=== PATIENT | female | born 1945 | race Caucasian/White ===

== ENCOUNTER → 2017-07-31 | Outpatient (CLI) | payer MEDICARE ==
[2015-01-20 07:55] VITALS: BP 104/74
[~2017-07-31] MED LIST: ASCO120C PO; CHOL20002 PO; CHOL5POW MC; ESCITALOPRAM OX10 MG PO; LEVO75TA5 PO; MV,M1TAB2 PO
--- NOTE | 2017-07-31 12:04 | KCIC ---
MRI Brain without contrast History: Dizziness, fall 6 months ago, feels off balance Technique: Multiplanar, multisequential noncontrast MR imaging was performed of the brain. Contrast: None Comparison: None Findings: There is no evidence of recent infarct or cytotoxic edema. The ventricles, sulci, and cisterns are within normal limits in size and configuration. There is no significant midline shift, intraaxial mass effect, or focal abnormal extra-axial fluid collection. There is overall mild T2 and FLAIR hyperintense abnormality of the supratentorial white matter concentrated in the periatrial and parietal white matter. The is no significant hemosiderin deposition of the brain parenchyma. There is preservation of the major intracranial flow-voids at the skull base. There is very minimal fluid left mastoid air cells.The cerebellar tonsils are normal in location. There is no significant abnormality of the pineal gland or pituitary gland. There is mild ethmoid air cell mucosal thickening bilaterally. There is preserved marrow signal of the clivus. There has been lens surgery bilaterally. Impression: 1. Overall mild T2 and FLAIR hyperintense signal abnormality concentrated in the periatrial parietal white matter is nonspecific, most commonly due to chronic microvascular ischemic disease in a patient this age. Electronically signed by: Bahman Hills MD (07/31/2017 12:00 PM) [id number]
== END | disposition home or self-care (01) ==
LOC: KCIC MRI 10:40
PROVIDERS: ATTEND Physician Assistant Medical
DX: I99.8 Other disorder of circulatory system (principal); R42 Dizziness and giddiness; R90.82 White matter disease, unspecified; W19.XXXD Unspecified fall, subsequent encounter
CPT/HCPCS: 70551

== ENCOUNTER 2021-10-06 16:48 | Inpatient (IN) | payer MEDICARE ==
[~2021-10-06] VITALS: Ht 177.8 cm; Wt 86.9 kg
[2021-10-06 16:45] VITALS: BP 143/71
[~2021-10-06 16:48] MED LIST changes: -CHOL20002 PO; +CHOL200059 PO
[2021-10-06] MEDS ORDERED: HEPARIN for IV BOLUS 10,000 UNIT/10 ML VIAL. IV PRN ×2 (17:45)
[2021-10-06 18:57] VITALS: BP 121/74
[2021-10-06] MEDS ORDERED: LOPE-101 PO (19:31)
[2021-10-06] MEDS: CITALOPRAM 20 MG TABLET. PO SCH (20:47)
[2021-10-06 22:55] VITALS: BP 107/62
[2021-10-07 03:04] VITALS: BP 114/69
[2021-10-07] MEDS: LEVOTHYROXINE 88 MCG TABLET PO SCH (05:52)
[2021-10-07 06:47] LABS: BASO # 0.1 x10^3/uL (0.0-0.2); BASO % 1 % (0-3); EOS # 0.1 x10^3/uL (0.0-0.7); EOS % 1 % (0-3); HEMATOCRIT 38.8 % (36.0-47.0); HEMOGLOBIN 12.7 g/dL (12.0-15.5); LYMPH # 2.7 x10^3/uL (1.0-4.8); LYMPH % 29 % (24-48); MEAN CORPUSCULAR HEMOGLOBIN 29 pg (25-35); MEAN CORPUSCULAR HGB CONC 33 g/dL (31-37); MEAN CORPUSCULAR VOLUME 87 fL (79-100); MONO # 0.9 x10^3/uL (0.0-1.1); MONO % 9 % (0-9); NEUT # 5.7 x10^3/uL (1.8-7.7); NEUT % 60 % (31-73); PLATELET COUNT 237 x10^3/uL (140-400); RED BLOOD COUNT 4.46 x10^6/uL (3.50-5.40); RED CELL DISTRIBUTION WIDTH 13.4 % (11.5-14.5); WHITE BLOOD COUNT 9.4 x10^3/uL (4.0-11.0)
[2021-10-07 07:00] VITALS: BP 132/68
[2021-10-07 07:21] LABS: ALBUMIN 2.7 g/dL (3.4-5.0); ALBUMIN/GLOBULIN RATIO 0.8 (1.0-1.7); CALCIUM 7.9 mg/dL (8.5-10.1); CREATININE 0.9 mg/dL (0.6-1.0); GFR 60.9; TOTAL BILIRUBIN 0.3 mg/dL (0.2-1.0)
[2021-10-07] MEDS ORDERED: CITALOPRAM 20 MG TABLET. PO SCH (09:00)
[2021-10-07] MEDS: HEPARIN 25,000UTS/250ML PREMIX 250 ML IV PRN (09:54)
[2021-10-07 10:33] VITALS: BP 140/63
--- NOTE | 2021-10-07 12:25 | NUR ---
SS following for discharge planning. SS reviewed pt chart and discussed with pt RN. Pt is from home and is currently requiring oxygen at three liters nasal canula. Cardiology and Pulmonology consulted. Heparin drip. ECHO ordered. SS will continue to follow for discharge planning.
--- NOTE | 2021-10-07 13:07 | PDOC ---
PULMONARY PROGRESS NOTES DATE: 10/07/21 TIME: 13:06 Vitals Vital Signs Date Time Temp Pulse Resp B/P (MAP) Pulse Ox O2 Delivery O2 Flow Rate FiO2 10/07/21 10:33 97.8 62 18 140/63 (88) 98 Nasal Cannula 3.0 97.8 Labs Laboratory Tests Test 10/06/21 18:50 10/07/21 01:00 10/07/21 06:30 Heparin Anti-Xa Act, Unfractionated 0.55 IU/mL (0.30-0.70) 0.53 IU/mL (0.30-0.70) 0.48 IU/mL (0.30-0.70) Troponin I High Sensitivity 270 ng/L (4-50) White Blood Count 9.4 x10^3/uL (4.0-11.0) Red Blood Count 4.46 x10^6/uL (3.50-5.40) Hemoglobin 12.7 g/dL (12.0-15.5) Hematocrit 38.8 % (36.0-47.0) Mean Corpuscular Volume 87 fL (79-100) Mean Corpuscular Hemoglobin 29 pg (25-35) Mean Corpuscular Hemoglobin Concent 33 g/dL (31-37) Red Cell Distribution Width 13.4 % (11.5-14.5) Platelet Count 237 x10^3/uL (140-400) Neutrophils (%) (Auto) 60 % (31-73) Lymphocytes (%) (Auto) 29 % (24-48) Monocytes (%) (Auto) 9 % (0-9) Eosinophils (%) (Auto) 1 % (0-3) Basophils (%) (Auto) 1 % (0-3) Neutrophils # (Auto) 5.7 x10^3/uL (1.8-7.7) Lymphocytes # (Auto) 2.7 x10^3/uL (1.0-4.8) Monocytes # (Auto) 0.9 x10^3/uL (0.0-1.1) Eosinophils # (Auto) 0.1 x10^3/uL (0.0-0.7) Basophils # (Auto) 0.1 x10^3/uL (0.0-0.2) Sodium Level 142 mmol/L (136-145) Potassium Level 4.0 mmol/L (3.5-5.1) Chloride Level 108 mmol/L (98-107) Carbon Dioxide Level 25 mmol/L (21-32) Anion Gap 9 (6-14) Blood Urea Nitrogen 16 mg/dL (7-20) Creatinine 0.9 mg/dL (0.6-1.0) Estimated GFR (Cockcroft-Gault) 60.9 BUN/Creatinine Ratio 18 (6-20) Glucose Level 127 mg/dL (70-99) Calcium Level 7.9 mg/dL (8.5-10.1) Total Bilirubin 0.3 mg/dL (0.2-1.0) Aspartate Amino Transf (AST/SGOT) 10 U/L (15-37) Alanine Aminotransferase (ALT/SGPT) 20 U/L (14-59) Alkaline Phosphatase 69 U/L (46-116) Total Protein 6.0 g/dL (6.4-8.2) Albumin 2.7 g/dL (3.4-5.0) Albumin/Globulin Ratio 0.8 (1.0-1.7) Thyroid Stimulating Hormone (TSH) 0.690 uIU/mL (0.358-3.74) Laboratory Tests Test 10/06/21 18:50 10/07/21 01:00 10/07/21 06:30 Heparin Anti-Xa Act, Unfractionated 0.55 IU/mL (0.30-0.70) 0.53 IU/mL (0.30-0.70) 0.48 IU/mL (0.30-0.70) Troponin I High Sensitivity 270 ng/L (4-50) White Blood Count 9.4 x10^3/uL (4.0-11.0) Red Blood Count 4.46 x10^6/uL (3.50-5.40) Hemoglobin 12.7 g/dL (12.0-15.5) Hematocrit 38.8 % (36.0-47.0) Mean Corpuscular Volume 87 fL (79-100) Mean Corpuscular Hemoglobin 29 pg (25-35) Mean Corpuscular Hemoglobin Concent 33 g/dL (31-37) Red Cell Distribution Width 13.4 % (11.5-14.5) Platelet Count 237 x10^3/uL (140-400) Neutrophils (%) (Auto) 60 % (31-73) Lymphocytes (%) (Auto) 29 % (24-48) Monocytes (%) (Auto) 9 % (0-9) Eosinophils (%) (Auto) 1 % (0-3) Basophils (%) (Auto) 1 % (0-3) Neutrophils # (Auto) 5.7 x10^3/uL (1.8-7.7) Lymphocytes # (Auto) 2.7 x10^3/uL (1.0-4.8) Monocytes # (Auto) 0.9 x10^3/uL (0.0-1.1) Eosinophils # (Auto) 0.1 x10^3/uL (0.0-0.7) Basophils # (Auto) 0.1 x10^3/uL (0.0-0.2) Sodium Level 142 mmol/L (136-145) Potassium Level 4.0 mmol/L (3.5-5.1) Chloride Level 108 mmol/L (98-107) Carbon Dioxide Level 25 mmol/L (21-32) Anion Gap 9 (6-14) Blood Urea Nitrogen 16 mg/dL (7-20) Creatinine 0.9 mg/dL (0.6-1.0) Estimated GFR (Cockcroft-Gault) 60.9 BUN/Creatinine Ratio 18 (6-20) Glucose Level 127 mg/dL (70-99) Calcium Level 7.9 mg/dL (8.5-10.1) Total Bilirubin 0.3 mg/dL (0.2-1.0) Aspartate Amino Transf (AST/SGOT) 10 U/L (15-37) Alanine Aminotransferase (ALT/SGPT) 20 U/L (14-59) Alkaline Phosphatase 69 U/L (46-116) Total Protein 6.0 g/dL (6.4-8.2) Albumin 2.7 g/dL (3.4-5.0) Albumin/Globulin Ratio 0.8 (1.0-1.7) Thyroid Stimulating Hormone (TSH) 0.690 uIU/mL (0.358-3.74) Medications Active Scripts Medications Dose Route/Sig Max Daily Dose Days Date Category Imodium A-D (Loperamide HCl) 2 Mg Capsule 2 Mg PO PRN DAILY PRN 10/06/21 Reported Vitamin D-3 (Cholecalciferol (Vitamin D3)) 2,000 Unit Tablet 2,000 Unit PO 01/20/15 Reported Porsha-C (Ascorbic Acid) 120 Gm Crystals 500 Mg PO DAILY 01/20/15 Reported Cholestyramine Resin (Cholestyramine) 5 Gm Powder 5 Gm MC 01/20/15 Reported Strovite One Caplet (Mv,Min #10/Fa/D3/Alip Acid/Lut) 1 Each Tablet 1 Each PO 01/20/15 Reported Levothyroxine Sodium 75 Mcg Tablet 75 Mcg PO DAILYAC 01/20/15 Reported Escitalopram Oxalate 10 Mg Tablet 10 Mg PO QHS 01/20/15 Reported Impression . FULL NOTE DICTATED THANKS CONTINUE THE SAME HOME ON ELIQUIS IN 24-48 HOURS FERMIN MORA MD Oct 07, 2021 13:07
--- NOTE | 2021-10-07 13:28 | HP ---
DATE OF SERVICE: 10/07/2021 ADMIT DATE: 10/06/2021 HISTORY OF PRESENT ILLNESS: The patient is a 76-year-old female patient who presented to the Emergency Room with chest pain and intermittent chest discomfort and shortness of breath for a couple of months, it started out as a cold about 3 months ago. Her nasal congestion and cough went away, but the patient still had fatigue and decreased exercise tolerance. She feels like she is getting worse over the last 4 days prior to arrival to the Emergency Room, she feels like she gets short of breath and just walking across the room when she had chest discomfort, it is central chest pressure of mild intensity. She notes the shortness of breath more than the pain. She has never had any cardiac catheterization or stress testing. She is vaccinated against COVID-19. She has never tested positive for COVID-19. She has received her Moderna vaccine booster. Denied any fever or chills. She is mostly homebound. She only goes shopping to [facility]. She has never had traveled by car or flew by airplane at least over the last year. According to her, she has never been out of [place] for more than a year now. She apparently was extensively investigated in the Emergency Room and has had lab work and imaging studies. Her lab work were mostly unremarkable except that she was found to have slightly elevated troponin at 333. Her prothrombin time was 11.8, INR 1.1, APTT was 92 and her coronavirus rapid testing and PCR both negative. She has had a chest x-ray, which basically showed that the patient has normal lung volumes. No pulmonary masses or consolidation. The tracheobronchial tree and hilar structures are normal. No pleural effusion or pneumothorax. The cardiomediastinal silhouette is normal. The great vessels and thorax are normal. Her CT angio of the chest showed the patient has large bilateral main pulmonary artery emboli extending into the lobar segmental and distal pulmonary arteries, mild evidence of right heart strain and early pulmonary infarct. The patient was started on heparin drip and in consultation with the ep technologist, she was transferred to [facility]. She did have venous Doppler ultrasound of both lower extremities, which showed the patient had a positive exam for nonocclusive deep venous thrombosis in the distal left superficial femoral vein. No evidence of deep vein thrombosis in the right lower extremity. PAST MEDICAL HISTORY: Significant for hypothyroidism and B12 deficiency as well as osteoarthritis. PAST SURGICAL HISTORY: Significant for right total hip arthroplasty in 2013, has tubal ligation, bilateral cataract extraction, underwent colonoscopies multiple times that were all negative. ALLERGIES: She has no known drug allergies. MEDICATIONS: She is currently on the following medications: She is on levothyroxine sodium 50 mcg once a day, gabapentin 600 mg 3 times a day, hydrocodone/APAP 5/325 one tablet every 6 hours, cyanocobalamin 1000 mcg/1 mL intramuscularly twice a month, naproxen 500 mg twice a day, meloxicam 15 mg daily. She is also on escitalopram and multivitamin. FAMILY HISTORY: She has 1 brother who at age of 39 as he committed suicide. Her father in 1982 secondary to myocardial infarction. Mother at age of 98 due to old age. SOCIAL HISTORY: She is , has 2 sons and 1 daughter. She continued to smoke every day about 5-10 cigarettes. She drinks 2 glasses of wine every day. Does not use any drugs. 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 REVIEW OF SYSTEMS: The patient has bilateral cataract extraction, but denied any glaucoma or macular degeneration. Denied any earache, tinnitus or sensory deafness. Denied any nosebleed, stuffy nose or postnasal drip. Denied any sore throat, sore tongue, toothache, hoarseness of voice or difficulty swallowing. Denied any weight loss. Denied any nausea, vomiting, diarrhea or constipation. Denied any hematemesis, melena or hematochezia. Denied any dysuria, frequency or hematuria. Denied any chest pain, shortness of breath, orthopnea or paroxysmal nocturnal dyspnea. Denied any cough, phlegm or hemoptysis. Denied any dizziness, lightheadedness or vertigo. Denied any chills, rigors or fever. PHYSICAL EXAMINATION: GENERAL: On arrival to the Emergency Room, she looked well and was clearly in no apparent respiratory distress. There was no pallor, jaundice, cyanosis, or thyromegaly. No jugular venous distention. No lower limb edema. VITAL SIGNS: Her heart rate was 100, blood pressure was 134/65, temperature 98.2, respiratory rate was 18 and oxygen saturation was 90% on room air. HEAD, EYES, EARS, NOSE, AND THROAT: Normocephalic and atraumatic. NECK: Supple. HEART: Showed normal first and second heart sounds. No gallop, rub or murmur. CHEST: Clear to auscultation, no crepitation or rhonchi. ABDOMEN: Distended, soft, nontender. NEUROLOGIC: She was awake, alert, responding appropriately. All cranial nerves intact. She moves all her extremities without difficulty. She ambulates without assistance or assistive devices. LABORATORY DATA: Her lab work showed that her white cell count was 9300, hemoglobin 15, hematocrit 45, MCV 89 and platelet count 280,000 with an automated differential showed 84% polymorphs, 11% lymphocytes, 4% monocytes. Her serum sodium was 140, potassium 4.5, chloride 104, bicarbonate 22, anion gap of 14, BUN 13, creatinine was 0.9. Estimated GFR was 60 mL per minute. Her glucose 129, calcium was 8.7. AST, ALT, alkaline phosphatase are normal. Her troponin I high sensitivity was 333, second one was 354. Her beta natriuretic peptide was 3448. Total protein 7.1, albumin was 3.6. Her prothrombin time and INR slightly elevated. Her APTT was 92 and that showed this was done before or after the heparin drip. Her coronavirus by both rapid and PCR testing was negative. ASSESSMENT AND PLAN: In summary, this is a 76-year-old female patient presented with chest pain, shortness of breath, was found to have bilateral pulmonary emboli involving the main pulmonary arteries as well as extending into the lobar, segmental and distal pulmonary arteries with mild evidence of right heart strain and early pulmonary infarct. She has also a nonocclusive thrombus in the distal left femoral vein. The patient is not on any hormone replacement therapy or medication that perhaps makes it like other estrogen or progesterone predisposing to clotting. She does not have any family history of clotting disorder in that her mother at the age of 98. Father because of heart attack. She is not in heart failure. She is obviously morbidly obese, although her body mass index only 25 kilogram per square meter. She is a smoker. She has not traveled and has not left the area of [place] over the last year; however, according to her, she has led a more sedentary life and has been watching more movies this last year than the rest of her life. My plan is obviously to continue with heparin drip, consulted the ep technologist as well as research study assistant and perhaps the cloth carrier/oncologist as her APTT was markedly prolonged. I do not know whether that has any significance. As long as she remained hemodynamically stable, we will probably eventually switch her to Eliquis. MICHAEL DR: Ruddy TID: [id number]
--- NOTE | 2021-10-07 14:50 | PN ---
DATE: 10/07/2021 SUBJECTIVE: The patient is resting, slightly propped up in bed, in no apparent respiratory distress. She is awake, alert. Denied any chest pain, shortness of breath, cough, phlegm or hemoptysis. She was diagnosed yesterday with bilateral pulmonary emboli as well as left lower extremity DVT. Her DVT and PE are unprovoked, although according to her, she has led the more sedentary life over the last year because of COVID as probably the only disposing factor. PHYSICAL EXAMINATION: GENERAL: When I examined her, there was no pallor, jaundice, cyanosis or thyromegaly. No jugular venous distention. No lower limb edema. VITAL SIGNS: Her heart rate was 62, blood pressure was 140/63, temperature 97.8, respiratory rate was 18, and oxygen saturation was 98% on 3 liters of oxygen. HEAD, EYES, EARS, NOSE, AND THROAT: Normocephalic, atraumatic. NECK: Supple. HEART: Showed normal first and second heart sounds. No gallop or murmur. CHEST: Shows central trachea, equal bilateral chest expansion, air entry, vesicular breath sounds. I could not appreciate any crepitation or rhonchi. ABDOMEN: Distended, soft, nontender. NEUROLOGIC: She was grossly intact. Her intake and output are incompletely recorded. LABORATORY DATA: This morning showed a white cell count 9400, hemoglobin 13, hematocrit 39, MCV 87, and platelet count 237,000 with normal manual differential. Her chemistry showed a serum sodium 142, potassium 4, chloride 108, bicarbonate 25, anion gap of 9, BUN of 16, creatinine 0.9, estimated GFR was 60 mL per minute, her glucose 127, calcium was 7.9. Total bilirubin, AST, ALT, alkaline phosphatase were normal. Her total protein 6, albumin was 2.7, and TSH was 0.690. ASSESSMENT: This is a 76-year-old female patient who was seen in the Emergency Room with shortness of breath and chest discomfort, was diagnosed with large bilateral main pulmonary artery emboli extending into the lobar, segmental and distal pulmonary arteries with mild evidence of right heart strain and pulmonary infarct. She had venous Doppler ultrasound that was positive for nonocclusive deep vein thrombosis of the distal left superficial femoral vein, however, there is no evidence of deep venous thrombosis of the right lower extremity. PLAN: My plan is obviously to continue with heparin drip for now. I will consult the healthcare consulting manager, bridge design engineer and group art supervisor/oncologist. She probably needs also CT scan of the abdomen and pelvis, although she has multiple colonoscopies, which were all negative. HENRRY/GAVIN DR: Ruddy TID: [id number]
[2021-10-07 15:00] VITALS: BP 123/70
--- NOTE | 2021-10-07 15:24 | PDOC2 ---
CONSULT Date of Consult Date of Consult DATE: 10/07/21 TIME: 15:18 Reason for Consult Reason for Consult: Shortness of breath, pulmonary embolism Referring Physician Referring Physician: Dr. Baumann Identification/Chief Complaint Chief Complaint Shortness of breath Source Source: Chart review, Patient History of Present Illness Reason for Visit: The patient is a 76-year-old female who reportedly has had progressive weakness and some shortness of breath of the past 2 to 3 weeks. Her shortness of breath became significantly more severe and she went to the [facility] emergency room. Her work-up there included a chest x-ray that showed no acute changes. However a CTA of the chest showed a large bilateral main pulmonary artery PE. A lower extremity venous study was positive for nonocclusive DVT in the distal left superficial femoral vein. The patient was started on IV heparin and transferred to [place]. Initial blood testing showed mildly elevated troponins at 333 and 354. BNP was mildly elevated to 448. This morning the patient is resting relatively comfortably in bed. She has mild shortness of breath at rest. However she has no air hunger and is overall relatively comfortable. She denies chest pain. Past Medical History Cardiovascular: HTN Musculoskeletal: Osteoarthritis Endocrine: Hypothyroidism Past Surgical History Past Surgical History: Cataract Removal, Total hip replacement, Tubal Ligation Family History Family History: Coronary Artery Disease Social History <1 pack per day ALCOHOL: social Current Medications Current Medications Current Medications Heparin Sodium/ Dextrose 250 ml @ 12.8 mls/hr CONT PRN IV PER PROTOCOL Last administered on 10/07/21at 09:54; Start 10/06/21 at 17:45 Heparin Sodium (Porcine) (Heparin Sodium) 2,400 unit PRN Q6HRS PRN IV FOR UFH LEVEL LESS THAN 0.2; Start 10/06/21 at 17:45 Heparin Sodium (Porcine) (Heparin Sodium) 1,200 unit PRN Q6HRS PRN IV FOR UFH LEVEL 0.2 - 0.29; Start 10/06/21 at 17:45 Levothyroxine Sodium (Synthroid) 88 mcg DAILY06 PO Last administered on 10/07/21at 05:52; Start 10/07/21 at 06:00 Citalopram Hydrobromide (CeleXA) 20 mg DAILY PO ; Start 10/07/21 at 09:00; Stop 10/06/21 at 19:37; Status DC Citalopram Hydrobromide (CeleXA) 20 mg QHS PO Last administered on 10/06/21at 20:47; Start 10/06/21 at 21:00 Active Scripts Active Reported Imodium A-D (Loperamide HCl) 2 Mg Capsule 2 Mg PO PRN DAILY PRN Vitamin D-3 (Cholecalciferol (Vitamin D3)) 2,000 Unit Tablet 2,000 Unit PO Porsha-C (Ascorbic Acid) 120 Gm Crystals 500 Mg PO DAILY Cholestyramine Resin (Cholestyramine) 5 Gm Powder 5 Gm MC Strovite One Caplet (Mv,Min #10/Fa/D3/Alip Acid/Lut) 1 Each Tablet 1 Each PO Levothyroxine Sodium 75 Mcg Tablet 75 Mcg PO DAILYAC Escitalopram Oxalate 10 Mg Tablet 10 Mg PO QHS Allergies Allergies: Coded Allergies: No Known Drug Allergies (Unverified , 01/20/15) ROS General: YES: Fatigue Respiratory: YES: Shortness of breath, SOB with excertion Physical Exam General: mild distress Lungs: Clear to auscultation Heart: Regular rate Abdomen: Normal bowel sounds Vitals VITALS Vital Signs Date Time Temp Pulse Resp B/P (MAP) Pulse Ox O2 Delivery O2 Flow Rate FiO2 10/07/21 10:33 97.8 62 18 140/63 (88) 98 Nasal Cannula 3.0 97.8 Labs Labs Laboratory Tests Test 10/06/21 18:50 10/07/21 01:00 10/07/21 06:30 Heparin Anti-Xa Act, Unfractionated 0.55 IU/mL (0.30-0.70) 0.53 IU/mL (0.30-0.70) 0.48 IU/mL (0.30-0.70) Troponin I High Sensitivity 270 ng/L (4-50) White Blood Count 9.4 x10^3/uL (4.0-11.0) Red Blood Count 4.46 x10^6/uL (3.50-5.40) Hemoglobin 12.7 g/dL (12.0-15.5) Hematocrit 38.8 % (36.0-47.0) Mean Corpuscular Volume 87 fL (79-100) Mean Corpuscular Hemoglobin 29 pg (25-35) Mean Corpuscular Hemoglobin Concent 33 g/dL (31-37) Red Cell Distribution Width 13.4 % (11.5-14.5) Platelet Count 237 x10^3/uL (140-400) Neutrophils (%) (Auto) 60 % (31-73) Lymphocytes (%) (Auto) 29 % (24-48) Monocytes (%) (Auto) 9 % (0-9) Eosinophils (%) (Auto) 1 % (0-3) Basophils (%) (Auto) 1 % (0-3) Neutrophils # (Auto) 5.7 x10^3/uL (1.8-7.7) Lymphocytes # (Auto) 2.7 x10^3/uL (1.0-4.8) Monocytes # (Auto) 0.9 x10^3/uL (0.0-1.1) Eosinophils # (Auto) 0.1 x10^3/uL (0.0-0.7) Basophils # (Auto) 0.1 x10^3/uL (0.0-0.2) Sodium Level 142 mmol/L (136-145) Potassium Level 4.0 mmol/L (3.5-5.1) Chloride Level 108 mmol/L (98-107) Carbon Dioxide Level 25 mmol/L (21-32) Anion Gap 9 (6-14) Blood Urea Nitrogen 16 mg/dL (7-20) Creatinine 0.9 mg/dL (0.6-1.0) Estimated GFR (Cockcroft-Gault) 60.9 BUN/Creatinine Ratio 18 (6-20) Glucose Level 127 mg/dL (70-99) Calcium Level 7.9 mg/dL (8.5-10.1) Total Bilirubin 0.3 mg/dL (0.2-1.0) Aspartate Amino Transf (AST/SGOT) 10 U/L (15-37) Alanine Aminotransferase (ALT/SGPT) 20 U/L (14-59) Alkaline Phosphatase 69 U/L (46-116) Total Protein 6.0 g/dL (6.4-8.2) Albumin 2.7 g/dL (3.4-5.0) Albumin/Globulin Ratio 0.8 (1.0-1.7) Thyroid Stimulating Hormone (TSH) 0.690 uIU/mL (0.358-3.74) Laboratory Tests Test 10/06/21 18:50 2/25/22 01:00 10/07/21 06:30 Heparin Anti-Xa Act, Unfractionated 0.55 IU/mL (0.30-0.70) 0.53 IU/mL (0.30-0.70) 0.48 IU/mL (0.30-0.70) Troponin I High Sensitivity 270 ng/L (4-50) White Blood Count 9.4 x10^3/uL (4.0-11.0) Red Blood Count 4.46 x10^6/uL (3.50-5.40) Hemoglobin 12.7 g/dL (12.0-15.5) Hematocrit 38.8 % (36.0-47.0) Mean Corpuscular Volume 87 fL (79-100) Mean Corpuscular Hemoglobin 29 pg (25-35) Mean Corpuscular Hemoglobin Concent 33 g/dL (31-37) Red Cell Distribution Width 13.4 % (11.5-14.5) Platelet Count 237 x10^3/uL (140-400) Neutrophils (%) (Auto) 60 % (31-73) Lymphocytes (%) (Auto) 29 % (24-48) Monocytes (%) (Auto) 9 % (0-9) Eosinophils (%) (Auto) 1 % (0-3) Basophils (%) (Auto) 1 % (0-3) Neutrophils # (Auto) 5.7 x10^3/uL (1.8-7.7) Lymphocytes # (Auto) 2.7 x10^3/uL (1.0-4.8) Monocytes # (Auto) 0.9 x10^3/uL (0.0-1.1) Eosinophils # (Auto) 0.1 x10^3/uL (0.0-0.7) Basophils # (Auto) 0.1 x10^3/uL (0.0-0.2) Sodium Level 142 mmol/L (136-145) Potassium Level 4.0 mmol/L (3.5-5.1) Chloride Level 108 mmol/L (98-107) Carbon Dioxide Level 25 mmol/L (21-32) Anion Gap 9 (6-14) Blood Urea Nitrogen 16 mg/dL (7-20) Creatinine 0.9 mg/dL (0.6-1.0) Estimated GFR (Cockcroft-Gault) 60.9 BUN/Creatinine Ratio 18 (6-20) Glucose Level 127 mg/dL (70-99) Calcium Level 7.9 mg/dL (8.5-10.1) Total Bilirubin 0.3 mg/dL (0.2-1.0) Aspartate Amino Transf (AST/SGOT) 10 U/L (15-37) Alanine Aminotransferase (ALT/SGPT) 20 U/L (14-59) Alkaline Phosphatase 69 U/L (46-116) Total Protein 6.0 g/dL (6.4-8.2) Albumin 2.7 g/dL (3.4-5.0) Albumin/Globulin Ratio 0.8 (1.0-1.7) Thyroid Stimulating Hormone (TSH) 0.690 uIU/mL (0.358-3.74) Images Images Imaging at [facility] as above. Assessment/Plan Assessment/Plan 1. Pulmonary embolism. As noted above the patient was found to have a large bilateral main pulmonary artery PE at [facility]. She has been started on IV heparin. A pulmonary consult is also in progress and the patient will be probably changed to Eliquis later today. Her rhythm remained stable and her symptoms are relatively controlled in the setting of her large PE. We will proceed with monitoring. We will check an echocardiogram today to evaluate her right sided pressures and function. This was discussed with the patient. 2. Hypothyroidism. Continue on present home medications. 3. Minimally elevated troponin as well as mildly elevated BNP. Checking echo as above. The patient's elevation in troponin can be attributed to her large PE but we will continue to monitor more specific cardiac disease. AMBIKA MANDUJANO MD Oct 07, 2021 15:24
[2021-10-07 19:15] VITALS: BP 132/72
--- NOTE | 2021-10-07 20:00 | CARD ---
MR#: [id number] Date of Study: 10/07/2021 Ordering Physician: JOHN RESENDEZ, Referring Physician: JOHN RESENDEZ, Tech: Italo Deluca [facility] APPROVED REPORT EXAM: Two-dimensional and M-mode echocardiogram with Doppler and color Doppler. Other Information Quality : FairHR: 62bpm Rhythm : NSRTechnically limited study due to body habitus and smoking. INDICATION Pulmonary Embolism RISK FACTORS Hypertension Obesity 2D DIMENSIONS RVDd4.2 (2.9-3.5cm)Left Atrium(2D)3.6 (1.6-4.0cm) IVSd0.9 (0.7-1.1cm)Aortic Root(2D)2.6 (2.0-3.7cm) LVDd4.2 (3.9-5.9cm)LVOT Diameter1.9 (1.8-2.4cm) PWd0.9 (0.7-1.1cm)LVDs1.8 (2.5-4.0cm) FS (%) 56.5 %SV69.4 ml Aortic Valve AoV Peak Xavier.117.3cm/sAoV VTI25.9cm AO Peak GR.5.5mmHgLVOT VTI 20.50cm AO Mean GR.3mmHg Mitral Valve MV E Voxkaqzx87.2cm/sMV E Peak Gr.3mmHg MV DECEL [id number] A Ufltimcq99.6cm/s MV E Mean Gr.1mmHgE/A Ratio0.9 TDI Lateral E' P. V12.61cm/sMedial E' P. V11.33cm/s E/Lateral E'4.9E/Medial E'5.5 Tricuspid Valve TR P. Reattttu718qy/sTR Peak Gr.39mmHg Pulmonary Vein S1 Ucxjrugw29.8cm/sS2 Vkjrtchi93.79cm/s D2 Rbywdplt93.8cm/s LEFT VENTRICLE The left ventricle is normal size. There is normal left ventricular wall thickness. The left ventricu lar systolic function is normal and the ejection fraction is within normal range. LV ejection fractio n of 60 to 65%. There is normal LV segmental wall motion. Transmitral Doppler flow pattern is Grade I -abnormal relaxation pattern. No left ventricle thrombus noted on this study. There is no ventricular septal defect visualized. There is no left ventricular aneurysm. There is no mass noted in the left ventricle. RIGHT VENTRICLE The right ventricle is mild to moderately dilated. There is normal right ventricular wall thickness. Systolic function is mildly reduced. ATRIA The left atrium size is normal. The right atrium is mildly dilated. The interatrial septum is intact with no evidence for an atrial septal defect or patent foramen ovale as noted on 2-D or Doppler imagi ng. AORTIC VALVE The aortic valve is normal in structure and function. Doppler and Color Flow revealed no significant aortic regurgitation. There is no significant aortic valvular stenosis. There is no aortic valvular v egetation. MITRAL VALVE The mitral valve is normal in structure and function. There is no evidence of mitral valve prolapse. There is no mitral valve stenosis. Doppler and Color-flow revealed mild mitral regurgitation. TRICUSPID VALVE The tricuspid valve is normal in structure and function. Doppler and Color Flow revealed mild tricusp id regurgitation. The PA pressure was estimated at 50 mmHg. There is no tricuspid valve prolapse or v egetation. There is no tricuspid valve stenosis. PULMONIC VALVE The pulmonary valve is normal in structure and function. Doppler and Color Flow revealed no pulmonic valvular regurgitation. There is no pulmonic valvular stenosis. GREAT VESSELS The aortic root is normal in size. The ascending aorta is normal in size. The pulmonary artery is nor mal. The IVC is mildly dilated. PERICARDIAL EFFUSION There is no pleural effusion. There is no evidence of significant pericardial effusion. Critical Notification Critical Value: No <Conclusion> The left ventricle is normal size. The left ventricular systolic function is normal and the ejection fraction is within normal range. LV ejection fraction of 60 to 65%. There is normal LV segmental wall motion. The right ventricle is mild to moderately dilated. RV systolic function is mildly reduced. The right atrium is mildly dilated. Doppler and Color Flow revealed no significant aortic regurgitation. There is no significant aortic valvular stenosis. Doppler and Color-flow revealed mild mitral regurgitation. Doppler and Color Flow revealed mild tricuspid regurgitation. The PA pressure was estimated at 50 mmHg. Signed by : John Resendez MD Electronically Approved : 10/07/2021 20:00:05
[2021-10-07] MEDS: CITALOPRAM 20 MG TABLET. PO SCH (20:05)
--- NOTE | 2021-10-07 20:43 | CONS ---
DATE OF CONSULTATION: 10/07/2021 ATTENDING PHYSICIAN: Vern Baumann MD REASON FOR CONSULTATION: The patient is seen in pulmonary consultation at the request of Dr. Baumann for acute pulmonary embolism. HISTORY OF PRESENT ILLNESS: The patient is a 76-year-old that presented with a 4-day history of increasing shortness of breath. She could not tolerate activities of daily living. She presented to the Emergency Room at [facility], underwent CT angiogram. I personally reviewed it. There is bilateral pulmonary artery extending into the lobar area, large bilateral main pulmonary artery, clot burden was high. There was also evidence of right heart strain and early pulmonary infarct. The patient was transferred to [place] for further management. She is currently on 4 liters of oxygen. Her heart rate is in the 70s. She is not more short of breath. She has been on heparin. Vital signs otherwise been stable. PAST MEDICAL HISTORY: Relatively unremarkable except for hypothyroidism, type 2 diabetes and obesity. PAST SURGICAL HISTORY: She has had cholecystectomy, right ankle surgery. FAMILY HISTORY: No family history of thrombophilia. There is a family history of hypertension. ALLERGIES: No known drug allergies. HOME MEDICATIONS: List was reviewed. CURRENT MEDICATIONS: List was likewise reviewed. REVIEW OF SYSTEMS: As indicated above, otherwise other systems were reviewed and negative. She has had yearly mammogram, she has had a colonoscopy in the past. She does not carry a history of cancer. She has not had any trauma to the lower extremities. She is relatively immobile at home, basically spent most of the day in a chair. No recent car rides or travel plans. PHYSICAL EXAMINATION: VITAL SIGNS: Stable. O2 saturation is greater than 92%, currently on 3 liters. Blood pressure has not been low. Heart rate has not been elevated. HEENT: Eyes: The sclerae were nonicteric. NECK: Jugular venous distention was not elevated. No lymphadenopathy. CHEST: Full expansion. LUNGS: Adequate flow with no wheezes. CARDIOVASCULAR: Regular rate and rhythm with S1, S2, no S3. ABDOMEN: Soft. EXTREMITIES: No clubbing, cyanosis or edema. LABORATORY DATA: Reviewed. Electrolytes were normal. White count was normal. Hemoglobin and hematocrit were normal. A CT angiogram reviewed. IMPRESSION: 1. Acute hypoxemic respiratory failure secondary to acute pulmonary embolism. 2. Acute pulmonary embolism with a large clot burden. 3. Right heart strain related to pulmonary embolism. 4. Pulmonary infarct. 5. Obesity. 6. Type 2 diabetes. 7. Depression. DISCUSSION: Suspect the patient's DVT and PE is related to recent immobilization. As a result of COVID, the patient has not been doing much and staying at home most of the time. For now, we will treat her for initial 3 months, check hypercoagulable state when she is off of anticoagulation. PLAN: 1. Continue heparin. 2. Switch to Eliquis. Discharge home within the next 24-48 hours. 3. Follow up with me in December. 4. Considering the patient's hemodynamic stability, no need for additional interventions, i.e., TPA or direct lysis of clot, direct thrombectomy. 5. Continue home meds. WENDIE DR: Berkley TID: [phone]
[2021-10-07 23:20] VITALS: BP 118/69
[2021-10-08 03:25] VITALS: BP 133/64
[2021-10-08] MEDS: LEVOTHYROXINE 88 MCG TABLET PO SCH (05:44)
[2021-10-08] MEDS: HEPARIN 25,000UTS/250ML PREMIX 250 ML IV PRN (05:55)
[2021-10-08 07:00] VITALS: BP 132/63
[2021-10-08 07:34] LABS: BASO # 0.1 x10^3/uL (0.0-0.2); BASO % 1 % (0-3); EOS # 0.2 x10^3/uL (0.0-0.7); EOS % 3 % (0-3); HEMATOCRIT 39.6 % (36.0-47.0); HEMOGLOBIN 12.8 g/dL (12.0-15.5); LYMPH # 2.7 x10^3/uL (1.0-4.8); LYMPH % 39 % (24-48); MEAN CORPUSCULAR HEMOGLOBIN 28 pg (25-35); MEAN CORPUSCULAR HGB CONC 32 g/dL (31-37); MEAN CORPUSCULAR VOLUME 88 fL (79-100); MONO # 0.5 x10^3/uL (0.0-1.1); MONO % 8 % (0-9); NEUT # 3.4 x10^3/uL (1.8-7.7); NEUT % 49 % (31-73); PLATELET COUNT 238 x10^3/uL (140-400); RED BLOOD COUNT 4.52 x10^6/uL (3.50-5.40); RED CELL DISTRIBUTION WIDTH 13.1 % (11.5-14.5)
--- NOTE | 2021-10-08 07:51 | PDOC ---
PULMONARY PROGRESS NOTES DATE: 10/08/21 TIME: 07:49 Subjective sob better no cp Vitals Vital Signs Date Time Temp Pulse Resp B/P (MAP) Pulse Ox O2 Delivery O2 Flow Rate FiO2 10/08/21 03:25 98.0 53 21 133/64 (87) 100 Nasal Cannula 3.0 98.0 ROS: No Nausea General: Alert HEENT: Other (nc at perrl) Lungs: Clear Cardiovascular: S1, S2 Abdomen: Soft Neuro Exam: Alert Skin: Warm Labs Laboratory Tests Test 10/06/21 18:50 10/07/21 01:00 10/07/21 06:30 10/08/21 07:20 Heparin Anti-Xa Act, Unfractionated 0.55 IU/mL (0.30-0.70) 0.53 IU/mL (0.30-0.70) 0.48 IU/mL (0.30-0.70) Troponin I High Sensitivity 270 ng/L (4-50) White Blood Count 9.4 x10^3/uL (4.0-11.0) 7.0 x10^3/uL (4.0-11.0) Red Blood Count 4.46 x10^6/uL (3.50-5.40) 4.52 x10^6/uL (3.50-5.40) Hemoglobin 12.7 g/dL (12.0-15.5) 12.8 g/dL (12.0-15.5) Hematocrit 38.8 % (36.0-47.0) 39.6 % (36.0-47.0) Mean Corpuscular Volume 87 fL (79-100) 88 fL (79-100) Mean Corpuscular Hemoglobin 29 pg (25-35) 28 pg (25-35) Mean Corpuscular Hemoglobin Concent 33 g/dL (31-37) 32 g/dL (31-37) Red Cell Distribution Width 13.4 % (11.5-14.5) 13.1 % (11.5-14.5) Platelet Count 237 x10^3/uL (140-400) 238 x10^3/uL (140-400) Neutrophils (%) (Auto) 60 % (31-73) 49 % (31-73) Lymphocytes (%) (Auto) 29 % (24-48) 39 % (24-48) Monocytes (%) (Auto) 9 % (0-9) 8 % (0-9) Eosinophils (%) (Auto) 1 % (0-3) 3 % (0-3) Basophils (%) (Auto) 1 % (0-3) 1 % (0-3) Neutrophils # (Auto) 5.7 x10^3/uL (1.8-7.7) 3.4 x10^3/uL (1.8-7.7) Lymphocytes # (Auto) 2.7 x10^3/uL (1.0-4.8) 2.7 x10^3/uL (1.0-4.8) Monocytes # (Auto) 0.9 x10^3/uL (0.0-1.1) 0.5 x10^3/uL (0.0-1.1) Eosinophils # (Auto) 0.1 x10^3/uL (0.0-0.7) 0.2 x10^3/uL (0.0-0.7) Basophils # (Auto) 0.1 x10^3/uL (0.0-0.2) 0.1 x10^3/uL (0.0-0.2) Sodium Level 142 mmol/L (136-145) Potassium Level 4.0 mmol/L (3.5-5.1) Chloride Level 108 mmol/L (98-107) Carbon Dioxide Level 25 mmol/L (21-32) Anion Gap 9 (6-14) Blood Urea Nitrogen 16 mg/dL (7-20) Creatinine 0.9 mg/dL (0.6-1.0) Estimated GFR (Cockcroft-Gault) 60.9 BUN/Creatinine Ratio 18 (6-20) Glucose Level 127 mg/dL (70-99) Calcium Level 7.9 mg/dL (8.5-10.1) Total Bilirubin 0.3 mg/dL (0.2-1.0) Aspartate Amino Transf (AST/SGOT) 10 U/L (15-37) Alanine Aminotransferase (ALT/SGPT) 20 U/L (14-59) Alkaline Phosphatase 69 U/L (46-116) Total Protein 6.0 g/dL (6.4-8.2) Albumin 2.7 g/dL (3.4-5.0) Albumin/Globulin Ratio 0.8 (1.0-1.7) Thyroid Stimulating Hormone (TSH) 0.690 uIU/mL (0.358-3.74) Laboratory Tests Test 10/08/21 07:20 White Blood Count 7.0 x10^3/uL (4.0-11.0) Red Blood Count 4.52 x10^6/uL (3.50-5.40) Hemoglobin 12.8 g/dL (12.0-15.5) Hematocrit 39.6 % (36.0-47.0) Mean Corpuscular Volume 88 fL (79-100) Mean Corpuscular Hemoglobin 28 pg (25-35) Mean Corpuscular Hemoglobin Concent 32 g/dL (31-37) Red Cell Distribution Width 13.1 % (11.5-14.5) Platelet Count 238 x10^3/uL (140-400) Neutrophils (%) (Auto) 49 % (31-73) Lymphocytes (%) (Auto) 39 % (24-48) Monocytes (%) (Auto) 8 % (0-9) Eosinophils (%) (Auto) 3 % (0-3) Basophils (%) (Auto) 1 % (0-3) Neutrophils # (Auto) 3.4 x10^3/uL (1.8-7.7) Lymphocytes # (Auto) 2.7 x10^3/uL (1.0-4.8) Monocytes # (Auto) 0.5 x10^3/uL (0.0-1.1) Eosinophils # (Auto) 0.2 x10^3/uL (0.0-0.7) Basophils # (Auto) 0.1 x10^3/uL (0.0-0.2) Medications Active Scripts Medications Dose Route/Sig Max Daily Dose Days Date Category Imodium A-D (Loperamide HCl) 2 Mg Capsule 2 Mg PO PRN DAILY PRN 10/06/21 Reported Vitamin D-3 (Cholecalciferol (Vitamin D3)) 2,000 Unit Tablet 2,000 Unit PO 01/20/15 Reported Porsha-C (Ascorbic Acid) 120 Gm Crystals 500 Mg PO DAILY 01/20/15 Reported Cholestyramine Resin (Cholestyramine) 5 Gm Powder 5 Gm MC 01/20/15 Reported Strovite One Caplet (Mv,Min #10/Fa/D3/Alip Acid/Lut) 1 Each Tablet 1 Each PO 01/20/15 Reported Levothyroxine Sodium 75 Mcg Tablet 75 Mcg PO DAILYAC 01/20/15 Reported Escitalopram Oxalate 10 Mg Tablet 10 Mg PO QHS 01/20/15 Reported Impression . IMPRESSION: 1. Acute hypoxemic respiratory failure secondary to acute pulmonary embolism. 2. Acute pulmonary embolism with a large clot burden. 3. Right heart strain related to pulmonary embolism. 4. Pulmonary infarct. 5. Obesity. 6. Type 2 diabetes. 7. Depression. Plan . PLAN: 1. heparin. 2. may Switch to Eliquis. 3. fu cta in 3 mo and Follow up with pulm group 4. Considering the patient's hemodynamic stability, no need for additional interventions, i.e., TPA or direct lysis of clot, direct thrombectomy. 5. hypercoagulable state when she is off of anticoagulation. ENRIKE SCOTT MD Oct 08, 2021 07:51
[2021-10-08 08:03] LABS: CHOLESTEROL/HDL RATIO 3.8
[2021-10-08] MEDS ORDERED: LOPERAMIDE 2 MG CAPSULE PO PRN (10:45)
[2021-10-08 11:00] VITALS: BP 127/62
[2021-10-08] MEDS: CHOLECALCIFEROL (VITAMIN D3) 1,000 UNIT TABLET PO SCH (11:47)
[2021-10-08] MEDS: MULTIVITAMIN with MINERAL TABLET. PO SCH (11:47)
--- NOTE | 2021-10-08 11:48 | PN ---
DATE: 10/08/2021 SUBJECTIVE: The patient is resting, slightly propped up in bed, in no apparent distress. She is awake, alert. On questioning her, she denied any complaint, in particular, denied any chest pain or shortness of breath. Denied any cough, phlegm or hemoptysis. OBJECTIVE: GENERAL: On examining her, there was no pallor, jaundice, cyanosis. No lymphadenopathy, no thyromegaly, no jugular venous distention. No lower limb edema. VITAL SIGNS: Her heart rate was 60, blood pressure was 132/63, temperature was 97.9, respiratory rate was 21 and oxygen saturation was 97% on 2 liters of oxygen by nasal cannula. HEAD, EYES, EARS, NOSE, AND THROAT: Normocephalic, atraumatic. NECK: Supple. HEART: Normal first and second heart sounds. No gallop, rub or murmur. CHEST: Clear to auscultation. No crepitation or rhonchi. ABDOMEN: Distended, soft, nontender. NEUROLOGIC: She is grossly intact. Her intake and output are incompletely recorded. LABORATORY DATA: Her lab work this morning showed a white cell count 7000, hemoglobin 12.8, hematocrit 39, MCV 88 and platelet count of 238,000. Her chemistry showed a serum sodium 142, potassium 4, chloride 108, bicarbonate 25, anion gap of 9, BUN 16, creatinine 0.9. Estimated GFR was 60 mL per minute. Her glucose 127, calcium was 7.9. Total bilirubin, AST, ALT, alkaline phosphatase were normal. Her total protein 6, albumin was 2.7. Her serum triglycerides was 185. Total cholesterol was 151, LDL cholesterol 74, VLDL was 37 and HDL cholesterol was 40 and the ratio was 3.8. Her TSH was 0.690. She apparently had also an echocardiogram done, which showed that the patient's left ventricle is normal in size. The left ventricular systolic function is normal with ejection fraction is within normal range. The ejection fraction was 60-65%. There is normal left ventricular segmental wall motion. The right ventricle is mildly to moderately dilated, right ventricle systolic function is mildly reduced. The right atrium is mildly dilated. Doppler and color flow revealed no significant aortic regurgitation and no significant aortic valvular stenosis. Doppler and color flow revealed mild mitral regurgitation and mild tricuspid regurgitation. The pulmonary artery pressure was estimated at 50 mmHg. ASSESSMENT: 1. This is a 76-year-old female patient with unprovoked left lower extremity deep venous thrombosis and bilateral pulmonary emboli. 2. Hypothyroidism. 3. Vitamin B12 deficiency, generalized osteoarthritis. PLAN: My plan is to switch her to Eliquis 10 mg twice a day for 7 days and then down to 5 mg twice a day and we will consult physical and occupational therapy. We will do also a 6-minute walk to see whether she will need home oxygen. ZULEMA DR: Ruddy TID: [phone]
--- NOTE | 2021-10-08 13:31 | PDOC ---
PROGRESS NOTES Date of Service DATE: 10/08/21 TIME: 13:28 Subjective Subjective Patient seen and examined Objective Objective Vital Signs Date Time Temp Pulse Resp B/P (MAP) Pulse Ox O2 Delivery O2 Flow Rate FiO2 10/08/21 11:00 98.4 62 21 127/62 (83) 96 Nasal Cannula 3.0 98.4 Intake and Output 10/08/21 07:00 Intake Total 500 ml Output Total 1 ml Balance 499 ml Intake Oral 500 ml Output Urine Total 1 ml # Voids 1 # Bowel Movements 1 Physical Exam Abdomen: Normal bowel sounds Heart: Regular rate General: mild distress Lungs: Clear to auscultation Assessment Assessment 1. Pulmonary embolism. The patient was found to have a large bilateral main pulmonary artery PE at [facility]. She has been started on IV heparin. Her rhythm has remained stable. Echocardiogram shows intact LV systolic function. The right ventricle is mild to moderately dilated with a slight decrease in systolic function. Patient has mild tricuspid vegetation with an elevated PAP of 50 mmHg. Today she continues to feel better. She denies any chest pain. She has been on heparin and is being started on Eliquis today. She has been evaluated by the pulmonary service. 2. Hypothyroidism. Continue on present home medications. 3. Minimally elevated troponin as well as mildly elevated BNP. Echo with normal LV systolic function. Elevation in troponin secondary to her large PE. We will follow-up as an outpatient. . Comment Review of Relevant I have reviewed the following items lora (where applicable) has been applied. Labs Laboratory Tests Test 10/06/21 18:50 10/07/21 01:00 10/07/21 06:30 10/08/21 07:20 Heparin Anti-Xa Act, Unfractionated 0.55 IU/mL (0.30-0.70) 0.53 IU/mL (0.30-0.70) 0.48 IU/mL (0.30-0.70) 0.62 IU/mL (0.30-0.70) Troponin I High Sensitivity 270 ng/L (4-50) White Blood Count 9.4 x10^3/uL (4.0-11.0) 7.0 x10^3/uL (4.0-11.0) Red Blood Count 4.46 x10^6/uL (3.50-5.40) 4.52 x10^6/uL (3.50-5.40) Hemoglobin 12.7 g/dL (12.0-15.5) 12.8 g/dL (12.0-15.5) Hematocrit 38.8 % (36.0-47.0) 39.6 % (36.0-47.0) Mean Corpuscular Volume 87 fL (79-100) 88 fL (79-100) Mean Corpuscular Hemoglobin 29 pg (25-35) 28 pg (25-35) Mean Corpuscular Hemoglobin Concent 33 g/dL (31-37) 32 g/dL (31-37) Red Cell Distribution Width 13.4 % (11.5-14.5) 13.1 % (11.5-14.5) Platelet Count 237 x10^3/uL (140-400) 238 x10^3/uL (140-400) Neutrophils (%) (Auto) 60 % (31-73) 49 % (31-73) Lymphocytes (%) (Auto) 29 % (24-48) 39 % (24-48) Monocytes (%) (Auto) 9 % (0-9) 8 % (0-9) Eosinophils (%) (Auto) 1 % (0-3) 3 % (0-3) Basophils (%) (Auto) 1 % (0-3) 1 % (0-3) Neutrophils # (Auto) 5.7 x10^3/uL (1.8-7.7) 3.4 x10^3/uL (1.8-7.7) Lymphocytes # (Auto) 2.7 x10^3/uL (1.0-4.8) 2.7 x10^3/uL (1.0-4.8) Monocytes # (Auto) 0.9 x10^3/uL (0.0-1.1) 0.5 x10^3/uL (0.0-1.1) Eosinophils # (Auto) 0.1 x10^3/uL (0.0-0.7) 0.2 x10^3/uL (0.0-0.7) Basophils # (Auto) 0.1 x10^3/uL (0.0-0.2) 0.1 x10^3/uL (0.0-0.2) Sodium Level 142 mmol/L (136-145) Potassium Level 4.0 mmol/L (3.5-5.1) Chloride Level 108 mmol/L (98-107) Carbon Dioxide Level 25 mmol/L (21-32) Anion Gap 9 (6-14) Blood Urea Nitrogen 16 mg/dL (7-20) Creatinine 0.9 mg/dL (0.6-1.0) Estimated GFR (Cockcroft-Gault) 60.9 BUN/Creatinine Ratio 18 (6-20) Glucose Level 127 mg/dL (70-99) Calcium Level 7.9 mg/dL (8.5-10.1) Total Bilirubin 0.3 mg/dL (0.2-1.0) Aspartate Amino Transf (AST/SGOT) 10 U/L (15-37) Alanine Aminotransferase (ALT/SGPT) 20 U/L (14-59) Alkaline Phosphatase 69 U/L (46-116) Total Protein 6.0 g/dL (6.4-8.2) Albumin 2.7 g/dL (3.4-5.0) Albumin/Globulin Ratio 0.8 (1.0-1.7) Thyroid Stimulating Hormone (TSH) 0.690 uIU/mL (0.358-3.74) Triglycerides Level 185 mg/dL (0-150) Cholesterol Level 151 mg/dL (0-200) LDL Cholesterol, Calculated 74 mg/dL (0-100) VLDL Cholesterol, Calculated 37 mg/dL (0-40) Non-HDL Cholesterol Calculated 111 mg/dL (0-129) HDL Cholesterol 40 mg/dL (40-60) Cholesterol/HDL Ratio 3.8 Laboratory Tests Test 10/08/21 07:20 White Blood Count 7.0 x10^3/uL (4.0-11.0) Red Blood Count 4.52 x10^6/uL (3.50-5.40) Hemoglobin 12.8 g/dL (12.0-15.5) Hematocrit 39.6 % (36.0-47.0) Mean Corpuscular Volume 88 fL (79-100) Mean Corpuscular Hemoglobin 28 pg (25-35) Mean Corpuscular Hemoglobin Concent 32 g/dL (31-37) Red Cell Distribution Width 13.1 % (11.5-14.5) Platelet Count 238 x10^3/uL (140-400) Neutrophils (%) (Auto) 49 % (31-73) Lymphocytes (%) (Auto) 39 % (24-48) Monocytes (%) (Auto) 8 % (0-9) Eosinophils (%) (Auto) 3 % (0-3) Basophils (%) (Auto) 1 % (0-3) Neutrophils # (Auto) 3.4 x10^3/uL (1.8-7.7) Lymphocytes # (Auto) 2.7 x10^3/uL (1.0-4.8) Monocytes # (Auto) 0.5 x10^3/uL (0.0-1.1) Eosinophils # (Auto) 0.2 x10^3/uL (0.0-0.7) Basophils # (Auto) 0.1 x10^3/uL (0.0-0.2) Heparin Anti-Xa Act, Unfractionated 0.62 IU/mL (0.30-0.70) Triglycerides Level 185 mg/dL (0-150) Cholesterol Level 151 mg/dL (0-200) LDL Cholesterol, Calculated 74 mg/dL (0-100) VLDL Cholesterol, Calculated 37 mg/dL (0-40) Non-HDL Cholesterol Calculated 111 mg/dL (0-129) HDL Cholesterol 40 mg/dL (40-60) Cholesterol/HDL Ratio 3.8 Medications Current Medications Heparin Sodium/ Dextrose 250 ml @ 12.8 mls/hr CONT PRN IV PER PROTOCOL Last administered on 10/08/21at 05:55; Start 10/06/21 at 17:45; Stop 10/08/21 at 22:00 Heparin Sodium (Porcine) (Heparin Sodium) 2,400 unit PRN Q6HRS PRN IV FOR UFH LEVEL LESS THAN 0.2; Start 10/06/21 at 17:45; Stop 10/08/21 at 22:00 Heparin Sodium (Porcine) (Heparin Sodium) 1,200 unit PRN Q6HRS PRN IV FOR UFH LEVEL 0.2 - 0.29; Start 10/06/21 at 17:45; Stop 10/08/21 at 22:00 Levothyroxine Sodium (Synthroid) 88 mcg DAILY06 PO Last administered on 10/08/21at 05:44; Start 10/07/21 at 06:00 Citalopram Hydrobromide (CeleXA) 20 mg DAILY PO ; Start 10/07/21 at 09:00; Stop 10/06/21 at 19:37; Status DC Citalopram Hydrobromide (CeleXA) 20 mg QHS PO Last administered on 10/07/21at 20:05; Start 10/06/21 at 21:00 Apixaban (Eliquis) 10 mg BID PO ; Start 10/08/21 at 21:00; Stop 10/15/21 at 09:01 Apixaban (Eliquis) 5 mg BID PO ; Start 10/15/21 at 21:00 Loperamide HCl (Imodium) 2 mg PRN DAILY PRN PO DIARRHEA; Start 10/08/21 at 10:45 Ascorbic Acid (Vitamin C) 500 mg DAILY PO ; Start 10/09/21 at 09:00 Non-Formulary Medication (Escitalopram Oxalate ) 10 mg QHS PO ; Start 10/08/21 at 21:00; Status UNV Vitamin D (Vitamin D3) 2,000 unit DAILY PO Last administered on 10/08/21at 11:47; Start 10/08/21 at 11:30 Multivitamins (Thera M Plus) 1 tab DAILY PO Last administered on 10/08/21at 11:47; Start 10/08/21 at 11:30 Active Scripts Active Reported Imodium A-D (Loperamide HCl) 2 Mg Capsule 2 Mg PO PRN DAILY PRN Vitamin D-3 (Cholecalciferol (Vitamin D3)) 2,000 Unit Tablet 2,000 Unit PO Porsha-C (Ascorbic Acid) 120 Gm Crystals 500 Mg PO DAILY Cholestyramine Resin (Cholestyramine) 5 Gm Powder 5 Gm MC Strovite One Caplet (Mv,Min #10/Fa/D3/Alip Acid/Lut) 1 Each Tablet 1 Each PO Levothyroxine Sodium 75 Mcg Tablet 75 Mcg PO DAILYAC Escitalopram Oxalate 10 Mg Tablet 10 Mg PO QHS Vitals/I & O Vital Sign - Last 24 Hours 10/07/21 10/07/21 10/07/21 10/07/21 15:00 19:15 19:21 23:20 Temp 97.6 98.2 98.3 97.6 98.2 98.3 Pulse 65 75 58 Resp 19 24 21 B/P (MAP) 123/70 (87) 132/72 (92) 118/69 (85) Pulse Ox 98 97 99 O2 Delivery Nasal Cannula Nasal Cannula Nasal Cannula Nasal Cannula O2 Flow Rate 3.0 3.0 3.0 3.0 10/08/21 10/08/21 10/08/21 10/08/21 03:25 07:00 08:00 11:00 Temp 98.0 97.9 98.4 98.0 97.9 98.4 Pulse 53 60 62 Resp B/P (MAP) 133/64 (87) 132/63 (86) 127/62 (83) Pulse Ox 100 97 96 O2 Delivery Nasal Cannula Nasal Cannula Nasal Cannula Nasal Cannula O2 Flow Rate 3.0 3.0 2.0 3.0 Intake and Output 10/07/21 10/07/21 10/08/21 15:00 23:00 07:00 Intake Total 350 ml 150 ml Output Total 1 ml 0 ml Balance 349 ml 150 ml 0 ml Justifications for Admission Other Justification AMBIKA MANDUJANO MD Oct 08, 2021 13:31
[2021-10-08 15:00] VITALS: BP 116/66
[2021-10-08 19:25] VITALS: BP 134/62
[2021-10-08] MEDS: APIXABAN 5 MG TABLET. PO SCH (20:27)
[2021-10-08] MEDS: CITALOPRAM 20 MG TABLET. PO SCH (20:27)
[2021-10-08] MEDS ORDERED: NON FORMULARY ITEM (Escitalopram Oxalate 10 MG) PO SCH (21:00)
[2021-10-08 22:34] VITALS: BP 114/66
[2021-10-09 02:48] VITALS: BP 116/54
[2021-10-09] MEDS: LEVOTHYROXINE 88 MCG TABLET PO SCH (06:01)
[2021-10-09 06:21] VITALS: BP 118/64
--- NOTE | 2021-10-09 07:25 | PDOC ---
PULMONARY PROGRESS NOTES DATE: 10/09/21 TIME: 07:24 Subjective denies sob cp Vitals Vital Signs Date Time Temp Pulse Resp B/P (MAP) Pulse Ox O2 Delivery O2 Flow Rate FiO2 10/09/21 06:21 97.8 60 18 118/64 (82) 97 Nasal Cannula 3.0 97.8 ROS: No Nausea General: Alert HEENT: Other (nc at perrl) Lungs: Clear Cardiovascular: S1, S2 Abdomen: Soft Neuro Exam: Alert Skin: Warm Labs Laboratory Tests Test 10/08/21 07:20 White Blood Count 7.0 x10^3/uL (4.0-11.0) Red Blood Count 4.52 x10^6/uL (3.50-5.40) Hemoglobin 12.8 g/dL (12.0-15.5) Hematocrit 39.6 % (36.0-47.0) Mean Corpuscular Volume 88 fL (79-100) Mean Corpuscular Hemoglobin 28 pg (25-35) Mean Corpuscular Hemoglobin Concent 32 g/dL (31-37) Red Cell Distribution Width 13.1 % (11.5-14.5) Platelet Count 238 x10^3/uL (140-400) Neutrophils (%) (Auto) 49 % (31-73) Lymphocytes (%) (Auto) 39 % (24-48) Monocytes (%) (Auto) 8 % (0-9) Eosinophils (%) (Auto) 3 % (0-3) Basophils (%) (Auto) 1 % (0-3) Neutrophils # (Auto) 3.4 x10^3/uL (1.8-7.7) Lymphocytes # (Auto) 2.7 x10^3/uL (1.0-4.8) Monocytes # (Auto) 0.5 x10^3/uL (0.0-1.1) Eosinophils # (Auto) 0.2 x10^3/uL (0.0-0.7) Basophils # (Auto) 0.1 x10^3/uL (0.0-0.2) Heparin Anti-Xa Act, Unfractionated 0.62 IU/mL (0.30-0.70) Triglycerides Level 185 mg/dL (0-150) Cholesterol Level 151 mg/dL (0-200) LDL Cholesterol, Calculated 74 mg/dL (0-100) VLDL Cholesterol, Calculated 37 mg/dL (0-40) Non-HDL Cholesterol Calculated 111 mg/dL (0-129) HDL Cholesterol 40 mg/dL (40-60) Cholesterol/HDL Ratio 3.8 Medications Active Scripts Medications Dose Route/Sig Max Daily Dose Days Date Category Imodium A-D (Loperamide HCl) 2 Mg Capsule 2 Mg PO PRN DAILY PRN 10/06/21 Reported Vitamin D-3 (Cholecalciferol (Vitamin D3)) 2,000 Unit Tablet 2,000 Unit PO 01/20/15 Reported Porsha-C (Ascorbic Acid) 120 Gm Crystals 500 Mg PO DAILY 01/20/15 Reported Cholestyramine Resin (Cholestyramine) 5 Gm Powder 5 Gm MC 01/20/15 Reported Strovite One Caplet (Mv,Min #10/Fa/D3/Alip Acid/Lut) 1 Each Tablet 1 Each PO 01/20/15 Reported Levothyroxine Sodium 75 Mcg Tablet 75 Mcg PO DAILYAC 01/20/15 Reported Escitalopram Oxalate 10 Mg Tablet 10 Mg PO QHS 01/20/15 Reported Impression . IMPRESSION: 1. Acute hypoxemic respiratory failure secondary to acute pulmonary embolism. 2. Acute pulmonary embolism with a large clot burden. 3. Right heart strain related to pulmonary embolism. 4. Pulmonary infarct. 5. Obesity. 6. Type 2 diabetes. 7. Depression. Plan . 1. titrated fio2 to keep sat 90% 6 min walk at dc 2. Eliquis. 3. fu cta in 3 mo and Follow up with pulm group 4. hemodynamic stable 5. hypercoagulable state when she is off of anticoagulation. ENRIKE SCOTT MD Oct 09, 2021 07:25
[2021-10-09] MEDS: APIXABAN 5 MG TABLET. PO SCH (08:58)
[2021-10-09] MEDS: MULTIVITAMIN with MINERAL TABLET. PO SCH (08:58)
[2021-10-09] MEDS: CHOLECALCIFEROL (VITAMIN D3) 1,000 UNIT TABLET PO SCH (08:59)
[2021-10-09] MEDS ORDERED: ASCORBIC ACID 500 MG TABLET PO SCH (09:00)
[2021-10-09 11:04] VITALS: BP 128/70
--- NOTE | 2021-10-09 14:43 | PDOC ---
PROGRESS NOTES Date of Service DATE: 10/09/21 TIME: 14:40 Subjective Subjective Patient seen and examined Objective Objective Vital Signs Date Time Temp Pulse Resp B/P (MAP) Pulse Ox O2 Delivery O2 Flow Rate FiO2 10/09/21 11:04 98.0 63 18 128/70 (89) 93 Nasal Cannula 3.0 98.0 Intake and Output 10/09/21 07:00 Intake Total 350 ml Output Total 1450 ml Balance -1100 ml Intake Oral 150 ml IV Total 200 ml Output Urine Total 1450 ml # Bowel Movements 1 Physical Exam Heart: Regular rate Extremities: No clubbing General: No acute distress Lungs: Clear to auscultation Assessment Assessment 1. Pulmonary embolism. The patient was found to have a large bilateral main pulmonary artery PE at [facility]. She was started on IV heparin and transitioned to Eliquis. Her rhythm has remained stable. Echocardiogram shows intact LV systolic function. The right ventricle is mild to moderately dilated with a slight decrease in systolic function. Patient has mild tricuspid vegetation with an elevated PAP of 50 mmHg. Also followed by pulmonary. She continues to feel better. Probably home later today on Eliquis. Office follow- up in 3 weeks. 2. Hypothyroidism. Continue on present home medications. 3. Minimally elevated troponin as well as mildly elevated BNP. Echo with normal LV systolic function. Elevation in troponin secondary to her large PE. We will follow-up as above. Comment Review of Relevant I have reviewed the following items lora (where applicable) has been applied. Labs Laboratory Tests Test 10/08/21 07:20 White Blood Count 7.0 x10^3/uL (4.0-11.0) Red Blood Count 4.52 x10^6/uL (3.50-5.40) Hemoglobin 12.8 g/dL (12.0-15.5) Hematocrit 39.6 % (36.0-47.0) Mean Corpuscular Volume 88 fL (79-100) Mean Corpuscular Hemoglobin 28 pg (25-35) Mean Corpuscular Hemoglobin Concent 32 g/dL (31-37) Red Cell Distribution Width 13.1 % (11.5-14.5) Platelet Count 238 x10^3/uL (140-400) Neutrophils (%) (Auto) 49 % (31-73) Lymphocytes (%) (Auto) 39 % (24-48) Monocytes (%) (Auto) 8 % (0-9) Eosinophils (%) (Auto) 3 % (0-3) Basophils (%) (Auto) 1 % (0-3) Neutrophils # (Auto) 3.4 x10^3/uL (1.8-7.7) Lymphocytes # (Auto) 2.7 x10^3/uL (1.0-4.8) Monocytes # (Auto) 0.5 x10^3/uL (0.0-1.1) Eosinophils # (Auto) 0.2 x10^3/uL (0.0-0.7) Basophils # (Auto) 0.1 x10^3/uL (0.0-0.2) Heparin Anti-Xa Act, Unfractionated 0.62 IU/mL (0.30-0.70) Triglycerides Level 185 mg/dL (0-150) Cholesterol Level 151 mg/dL (0-200) LDL Cholesterol, Calculated 74 mg/dL (0-100) VLDL Cholesterol, Calculated 37 mg/dL (0-40) Non-HDL Cholesterol Calculated 111 mg/dL (0-129) HDL Cholesterol 40 mg/dL (40-60) Cholesterol/HDL Ratio 3.8 Medications Current Medications Heparin Sodium/ Dextrose 250 ml @ 12.8 mls/hr CONT PRN IV PER PROTOCOL Last administered on 10/08/21at 05:55; Start 10/06/21 at 17:45; Stop 10/08/21 at 22:00; Status DC Heparin Sodium (Porcine) (Heparin Sodium) 2,400 unit PRN Q6HRS PRN IV FOR UFH LEVEL LESS THAN 0.2; Start 10/06/21 at 17:45; Stop 10/08/21 at 22:00; Status DC Heparin Sodium (Porcine) (Heparin Sodium) 1,200 unit PRN Q6HRS PRN IV FOR UFH LEVEL 0.2 - 0.29; Start 10/06/21 at 17:45; Stop 10/08/21 at 22:00; Status DC Levothyroxine Sodium (Synthroid) 88 mcg DAILY06 PO Last administered on 2at 06:01; Start 10/07/21 at 06:00 Citalopram Hydrobromide (CeleXA) 20 mg DAILY PO ; Start 10/07/21 at 09:00; Stop 10/06/21 at 19:37; Status DC Citalopram Hydrobromide (CeleXA) 20 mg QHS PO Last administered on 10/08/21at 20:27; Start 10/06/21 at 21:00 Apixaban (Eliquis) 10 mg BID PO Last administered on 10/09/21at 08:58; Start 10/08/21 at 21:00; Stop 10/15/21 at 09:01 Apixaban (Eliquis) 5 mg BID PO ; Start 10/15/21 at 21:00 Loperamide HCl (Imodium) 2 mg PRN DAILY PRN PO DIARRHEA; Start 10/08/21 at 10:45 Ascorbic Acid (Vitamin C) 500 mg DAILY PO Last administered on 10/09/21at 08:58; Start 10/09/21 at 09:00 Non-Formulary Medication (Escitalopram Oxalate ) 10 mg QHS PO ; Start 10/08/21 at 21:00; Status UNV Vitamin D (Vitamin D3) 2,000 unit DAILY PO Last administered on 10/09/21at 08:59; Start 10/08/21 at 11:30 Multivitamins (Thera M Plus) 1 tab DAILY PO Last administered on 10/09/21at 08:58; Start 10/08/21 at 11:30 Active Scripts Active Reported Imodium A-D (Loperamide HCl) 2 Mg Capsule 2 Mg PO PRN DAILY PRN Vitamin D-3 (Cholecalciferol (Vitamin D3)) 2,000 Unit Tablet 2,000 Unit PO Porsha-C (Ascorbic Acid) 120 Gm Crystals 500 Mg PO DAILY Strovite One Caplet (Mv,Min #10/Fa/D3/Alip Acid/Lut) 1 Each Tablet 1 Each PO Levothyroxine Sodium 75 Mcg Tablet 75 Mcg PO DAILYAC Escitalopram Oxalate 10 Mg Tablet 10 Mg PO QHS Vitals/I & O Vital Sign - Last 24 Hours 10/08/21 10/08/21 10/08/21 10/08/21 15:00 19:25 20:00 22:34 Temp 98.2 98.3 97.8 98.2 98.3 97.8 Pulse 67 63 61 Resp 21 18 18 B/P (MAP) 116/66 (83) 134/62 (86) 114/66 (82) Pulse Ox 98 95 97 O2 Delivery Nasal Cannula Nasal Cannula Nasal Cannula Nasal Cannula O2 Flow Rate 3.0 3.0 3.0 3.0 10/09/21 10/09/21 10/09/21 10/09/21 02:48 06:21 08:00 11:04 Temp 98.3 97.8 98.0 98.3 97.8 98.0 Pulse 60 60 63 Resp 16 18 18 B/P (MAP) 116/54 (74) 118/64 (82) 128/70 (89) Pulse Ox 97 97 93 O2 Delivery Nasal Cannula Nasal Cannula Nasal Cannula Nasal Cannula O2 Flow Rate 3.0 3.0 2.0 3.0 Intake and Output 10/08/21 10/08/21 10/09/21 15:00 23:00 07:00 Intake Total 350 ml 0 ml Output Total 0 ml 1000 ml 450 ml Balance 0 ml -650 ml -450 ml Justifications for Admission Other Justification AMBIKA MANDUJANO MD Oct 09, 2021 14:43
[2021-10-09] MEDS ORDERED: APIX5TAB PO ×2 (14:45→14:47)
[2021-10-09 15:00] VITALS: BP 131/73
[2021-10-15] MEDS ORDERED: APIXABAN 5 MG TABLET. PO SCH (21:00)
== END 2021-10-09 18:25 | disposition home or self-care (01) | DRG 175 ==
LOC: 6 SOUTH 16:48
PROVIDERS: ADMIT Internal Medicine; ATTEND Internal Medicine
DX: I26.99 Other pulmonary embolism without acute cor pulmonale (principal); J96.01 Acute respiratory failure with hypoxia; I82.402 Acute embolism and thrombosis of unspecified deep veins of left lower extremity; E03.9 Hypothyroidism, unspecified; E11.9 Type 2 diabetes mellitus without complications; E53.8 Deficiency of other specified B group vitamins; E66.01 Morbid (severe) obesity due to excess calories; F17.200 Nicotine dependence, unspecified, uncomplicated; F32.A Depression, unspecified; I10 Essential (primary) hypertension; M15.9 Polyosteoarthritis, unspecified; Z82.49 Family history of ischemic heart disease and other diseases of the circulatory system; Z90.49 Acquired absence of other specified parts of digestive tract; Z96.649 Presence of unspecified artificial hip joint; Z68.27 Body mass index [BMI] 27.0-27.9, adult
CPT/HCPCS: 36415; 80053; 80061; 84443; 84484; 85025; 85520; 93306; 94618; J1644; 97116-GP; 97530-GO; C8929; G0378